=== PATIENT | female | born 2000 | race Caucasian/White ===

== ENCOUNTER 2023-01-19 20:22 | Emergency (ER) | payer BC ==
[~2023-01-19] VITALS: Ht 152.4 cm; Wt 81.2 kg
[2023-01-19 21:33] VITALS: BP_SYST 129; PULSE 98; RESP 17; TEMP 97.6; O2SAT 100
[2023-01-20] MEDS ORDERED: ACETAMINOPHEN 500 MG TABLET PO ONE (01:45)
[2023-01-20] MEDS ORDERED: IBUPROFEN 600 MG TABLET PO ONE (01:45)
[2023-01-20] MEDS ORDERED: fentaNYL CITRATE/PF 100 MCG/2 ML AMP IM ONE (03:00)
[2023-01-20 05:00] VITALS: BP_SYST 114; PULSE 90; RESP 17; TEMP 97.6; O2SAT 98
[2023-01-20] MEDS ORDERED: IBUP-1969 PO (05:12)
== END 2023-01-20 05:49 | disposition home or self-care (01) ==
LOC: SED 20:22
DX: S82.842A Displaced bimalleolar fracture of left lower leg, initial encounter for closed fracture (principal); Z79.899 Other long term (current) drug therapy; V00.111A Fall from in-line roller-skates, initial encounter; Y93.51 Activity, roller skating (inline) and skateboarding; Y92.89 Other specified places as the place of occurrence of the external cause; Y99.8 Other external cause status
CPT/HCPCS: 99283; 29515; 73610; 96372; J3010